=== PATIENT | female | born 1975 | race Hispanic/Latino ===

== ENCOUNTER 2019-08-14 22:11 | Emergency (ER) | payer BC, OTHER ==
[2019-08-14] MEDS ORDERED: ALBUTEROL SULFATE 0.083% 2.5 MG/3 ML INH IH ONE ×2 (23:04→23:55)
[2019-08-14] MEDS ORDERED: PREDNISONE 20 MG TABLET ONE (23:26)
[2019-08-14] MEDS ORDERED: LIDOCAINE HCL 2% VISCOUS 15 ML UDCUP ONE (23:26)
[2019-08-14] MEDS ORDERED: MAG HYDROX/AL HYDROX/SIMETH ES 30 ML SUSP UDCUP ONE (23:26)
[2019-08-15] MEDS ORDERED: DOXYCYCLINE HYCLATE 100 MG TABLET PO ONE (00:06)
== END 2019-08-15 00:38 | disposition home or self-care (01) ==
LOC: EDH 22:11
DX: J20.9 Acute bronchitis, unspecified (principal); J45.909 Unspecified asthma, uncomplicated; M54.2 Cervicalgia; Z90.710 Acquired absence of both cervix and uterus; Z98.890 Other specified postprocedural states; Z79.899 Other long term (current) drug therapy
CPT/HCPCS: 71046; 94640

== ENCOUNTER 2021-09-02 17:52 | Emergency (ER) | payer OTHER ==
[~2021-09-02] VITALS: Ht 154.9 cm; Wt 109.8 kg
[2021-09-02] MEDS ORDERED: ENALAPRILAT DIHYDRATE 1.25MG/ML 1ML VIAL IV STA (18:20)
[2021-09-02 18:26] LABS: BASOPHILS % (AUTO) 0.3 % (0.0-5.0); EOSINOPHILS % (AUTO) 0.9 % (0.0-8.0); LYMPHOCYTES % (AUTO) 11.7 % (21.0-51.0); MEAN CORPUSCULAR HEMOGLOBIN 31.3 pg (27.0-33.0); MEAN CORPUSCULAR HGB CONC 32.9 g/dL (32.0-36.0); MEAN CORPUSCULAR VOLUME 94.9 fL (79-99); MONOCYTES % (AUTO) 5.1 % (3.0-13.0); NEUTROPHILS % (AUTO) 81.4 % (40.0-77.0); PLATELET COUNT (AUTO) 324 K/uL (130-400); RED BLOOD CELL COUNT(AUTO) 4.32 MIL/uL (4.00-5.50); RED CELL DISTRIBUTION WIDTH 12.9 % (11.0-15.5)
[2021-09-02 18:40] LABS: CREATININE 0.8 mg/dL (0.5-1.5); POTASSIUM 5.1 mmol/L (3.5-5.1)
[2021-09-02 18:43] LABS: ALBUMIN 3.4 g/dL (3.5-5.0); BILIRUBIN,TOTAL 0.5 mg/dL (0.2-1.0); TOTAL PROTEIN, SERUM 7.9 g/dL (6.0-8.3)
[2021-09-02 19:58] LABS: APPEARANCE,URINE Clear (CLEAR); BILIRUBIN,URINE Negative (NEGATIVE); COLOR,URINE Yellow (YELLOW); GLUCOSE, URINE (UA) Negative (NEGATIVE); KETONES,URINE Negative (NEGATIVE); LEUKOCYTE ESTERASE ,URINE Negative (NEGATIVE); NITRATE,URINE Negative (NEGATIVE); OCCULT BLOOD,URINE Trace (NEGATIVE); PROTEIN,URINE Negative (NEGATIVE)
[2021-09-02 20:06] LABS: BACTERIA,URINE Few /HPF (None Seen); MUCUS,URINE Few LPF (None Seen); SQUAMOUS EPITHELIAL CELL,UR Few /HPF (0-2)
[2021-09-02] MEDS ORDERED: IBUPROFEN 600 MG TABLET PO STA (20:38)
[2021-09-02] MEDS ORDERED: KETOROLAC 30MG VIAL (30MG/ML) IV STA (20:47)
[2021-09-02 21:30] VITALS: BP 154/65
== END 2021-09-02 21:39 | disposition home or self-care (01) ==
LOC: EDH 17:52
DX: I10 Essential (primary) hypertension (principal); R55 Syncope and collapse; E66.01 Morbid (severe) obesity due to excess calories; Z68.42 Body mass index [BMI] 45.0-49.9, adult; Z79.1 Long term (current) use of non-steroidal anti-inflammatories (NSAID); Z90.710 Acquired absence of both cervix and uterus
CPT/HCPCS: 36415; 70450; 80053; 81001; 84484 ×2; 84703; 85025; 93005 ×3; 96374; 99285; J1885

== ENCOUNTER 2022-01-16 04:36 | Emergency (ER) | payer OTHER ==
[~2022-01-16] VITALS: Ht 154.9 cm; Wt 124.3 kg
[2022-01-16 05:41] LABS: BASOPHILS % (AUTO) 0.5 % (0.0-5.0); EOSINOPHILS % (AUTO) 1.9 % (0.0-8.0); HEMATOCRIT 45.1 % (36-48); LYMPHOCYTES % (AUTO) 11.4 % (21.0-51.0); MEAN CORPUSCULAR HEMOGLOBIN 31.2 pg (27.0-33.0); MEAN CORPUSCULAR HGB CONC 32.8 g/dL (32.0-36.0); MEAN CORPUSCULAR VOLUME 95.1 fL (79-99); MONOCYTES % (AUTO) 4.9 % (3.0-13.0); NEUTROPHILS % (AUTO) 80.7 % (40.0-77.0); PLATELET COUNT (AUTO) 327 K/uL (130-400); RED BLOOD CELL COUNT(AUTO) 4.74 MIL/uL (4.00-5.50); WHITE BLOOD COUNT (AUTO) 12.9 K/uL (4.8-10.8)
[2022-01-16 05:43] LABS: APPEARANCE,URINE Clear (CLEAR); BILIRUBIN,URINE Negative (NEGATIVE); COLOR,URINE Yellow (YELLOW); GLUCOSE, URINE (UA) Negative (NEGATIVE); KETONES,URINE Negative (NEGATIVE); LEUKOCYTE ESTERASE ,URINE Negative (NEGATIVE); NITRATE,URINE Negative (NEGATIVE); OCCULT BLOOD,URINE Trace (NEGATIVE); PROTEIN,URINE Negative (NEGATIVE); UROBILINOGEN,URINE 0.2 mg/dL (0.2-1.0)
[2022-01-16 05:55] LABS: INR 0.95 (0.85-1.15); PROTHROMBIN TIME 10.4 SEC (9.6-11.6)
[2022-01-16 05:56] LABS: PARTIAL THROMBOPLASTIN TIME 27.8 SEC (26.3-35.5)
[2022-01-16 05:59] LABS: ALBUMIN 3.5 g/dL (3.5-5.0); BILIRUBIN,TOTAL 0.4 mg/dL (0.2-1.0); CREATININE 0.6 mg/dL (0.5-1.5); POTASSIUM 3.7 mmol/L (3.5-5.1); TOTAL PROTEIN, SERUM 7.9 g/dL (6.0-8.3)
[2022-01-16 06:03] LABS: BACTERIA,URINE Rare /HPF (None Seen); SQUAMOUS EPITHELIAL CELL,UR 0-2 /HPF (0-2); WBC,URINE None Seen /HPF (0-1)
[2022-01-16 06:30] VITALS: BP 156/74
== END 2022-01-16 07:16 | disposition home or self-care (01) ==
LOC: EDH 04:36
DX: R07.89 Other chest pain (principal); I48.91 Unspecified atrial fibrillation; Z90.710 Acquired absence of both cervix and uterus
CPT/HCPCS: 36415; 71045; 80053; 81001; 84484; 85025; 85610; 85730; 93005

== ENCOUNTER 2022-09-18 10:19 | Emergency (ER) | payer OTHER ==
[~2022-09-18] VITALS: Ht 154.9 cm; Wt 117.9 kg
[2022-09-18] MEDS ORDERED: HYDROMORPHONE 0.5 MG SYG (0.5MG/0.5ML) IVP ONE (10:30)
[2022-09-18] MEDS ORDERED: ASPIRIN 325MG TAB PO ONE (10:30)
[2022-09-18 10:39] LABS: BASOPHILS % (AUTO) 0.3 % (0.0-5.0); EOSINOPHILS % (AUTO) 1.6 % (0.0-8.0); LYMPHOCYTES % (AUTO) 14.8 % (21.0-51.0); MEAN CORPUSCULAR HEMOGLOBIN 28.8 pg (27.0-33.0); MEAN CORPUSCULAR HGB CONC 33.5 g/dL (32.0-36.0); MONOCYTES % (AUTO) 5.1 % (3.0-13.0); NEUTROPHILS % (AUTO) 77.8 % (40.0-77.0); PLATELET COUNT (AUTO) 338 K/uL (130-400); RED CELL DISTRIBUTION WIDTH 12.1 % (11.0-15.5)
[2022-09-18] MEDS ORDERED: IOHEXOL 350 MG/ML 100ML INFUS..BTL IV ONE (10:45)
[2022-09-18 11:06] LABS: CREATININE 0.7 mg/dL (0.5-1.5); POTASSIUM 3.6 mmol/L (3.5-5.1)
[2022-09-18 11:09] LABS: ALBUMIN 3.3 g/dL (3.5-5.0); TOTAL PROTEIN, SERUM 7.8 g/dL (6.0-8.3)
[2022-09-18 11:23] LABS: B-TYPE NATRIURETIC PEPTIDE 37 pg/mL (0-100)
[2022-09-18 12:33] LABS: HCG,QUALITATIVE URINE NEGATIVE (NEGATIVE)
[2022-09-18 12:36] LABS: APPEARANCE,URINE CLEAR (CLEAR); BILIRUBIN,URINE NEGATIVE (NEGATIVE); COLOR,URINE COLORLESS (YELLOW); GLUCOSE, URINE (UA) NEGATIVE (NEGATIVE); KETONES,URINE NEGATIVE (NEGATIVE); LEUKOCYTE ESTERASE ,URINE NEGATIVE Leu/uL (NEGATIVE); NITRATE,URINE NEGATIVE (NEGATIVE); OCCULT BLOOD,URINE NEGATIVE (NEGATIVE); PH,URINE 5.5 (5.0-8.0); PROTEIN,URINE 10 mg/dL (NEGATIVE); UROBILINOGEN,URINE 0.2 mg/dL (0.2-1.0)
[2022-09-18] MEDS ORDERED: CYCL-309 PO (12:40)
[2022-09-18] MEDS ORDERED: GABA300C PO (12:40)
[2022-09-18] MEDS ORDERED: IBUP-1493 PO (12:40)
[2022-09-18 13:03] VITALS: BP 156/85
[2022-09-18 13:06] LABS: MUCUS,URINE RARE LPF (None Seen); SQUAMOUS EPITHELIAL CELL,UR FEW /HPF (0-2)
== END 2022-09-18 13:04 | disposition home or self-care (01) ==
LOC: EDH 10:19
DX: M54.6 Pain in thoracic spine (principal); E11.9 Type 2 diabetes mellitus without complications; I10 Essential (primary) hypertension
CPT/HCPCS: 99285; 72125; 96374; 71045; 84484; 80053; 83880; 85025; 85378; 81001; 81025; 36415; 71260; 72128; 93005; J1170; Q9967

== ENCOUNTER 2023-11-08 17:06 | Emergency (ER) | payer BC ==
[~2023-11-08] VITALS: Ht 154.9 cm; Wt 125.2 kg
[~2023-11-08 17:06] MED LIST: CYCL-309 PO; GABA300C PO; IBUP-1493 PO
[2023-11-08 17:45] LABS: BASOPHILS # (AUTO) 0.05 K/uL (0.00-0.20); BASOPHILS % (AUTO) 0.4 % (0.0-5.0); EOSINOPHILS # (AUTO) 0.06 K/uL (0.00-0.70); EOSINOPHILS % (AUTO) 0.5 % (0.0-8.0); HEMATOCRIT 44.2 % (36-48); IMMATURE GRANULOCYTE ABSOLUTE 0.07 K/uL (0-1); LYMPHOCYTES # (AUTO) 1.2 K/uL (1.0-4.8); LYMPHOCYTES % (AUTO) 9.2 % (21.0-51.0); MEAN CORPUSCULAR HEMOGLOBIN 31.7 pg (27.0-33.0); MEAN CORPUSCULAR HGB CONC 33.9 g/dL (32.0-36.0); MEAN CORPUSCULAR VOLUME 93.4 fL (79-99); MONOCYTES # (AUTO) 0.7 K/uL (0.1-1.0); MONOCYTES % (AUTO) 4.9 % (3.0-13.0); NEUTROPHILS # (AUTO) 11.2 K/uL (1.8-7.7); NEUTROPHILS % (AUTO) 84.5 % (40.0-77.0); PLATELET COUNT (AUTO) 344 K/uL (130-400); RED BLOOD CELL COUNT(AUTO) 4.73 MIL/uL (4.00-5.50); RED CELL DISTRIBUTION WIDTH 12.5 % (11.0-15.5); WHITE BLOOD COUNT (AUTO) 13.3 K/uL (4.8-10.8)
[2023-11-08 17:58] LABS: CREATININE 0.8 mg/dL (0.5-1.5); POTASSIUM 3.9 mmol/L (3.5-5.1)
[2023-11-08 18:07] LABS: ALBUMIN 3.5 g/dL (3.5-5.0); BILIRUBIN,TOTAL 0.5 mg/dL (0.2-1.0); TOTAL PROTEIN, SERUM 8.1 g/dL (6.0-8.3)
[2023-11-08 22:07] LABS: APPEARANCE,URINE CLOUDY (CLEAR); BILIRUBIN,URINE NEGATIVE (NEGATIVE); COLOR,URINE YELLOW (YELLOW); GLUCOSE, URINE (UA) NEGATIVE (NEGATIVE); KETONES,URINE NEGATIVE (NEGATIVE); LEUKOCYTE ESTERASE ,URINE NEGATIVE Leu/uL (NEGATIVE); NITRATE,URINE 2+ (NEGATIVE); OCCULT BLOOD,URINE MODERATE (NEGATIVE); PROTEIN,URINE 10 mg/dL (NEGATIVE); UROBILINOGEN,URINE 3 mg/dL (0.2-1.0)
[2023-11-08 22:09] LABS: ADD UA MICROSCOPIC YES
[2023-11-08 22:11] LABS: BACTERIA,URINE MANY /HPF (None Seen); MUCUS,URINE RARE LPF (None Seen); RBC,URINE 0-1 /HPF (0-1); SQUAMOUS EPITHELIAL CELL,UR FEW /HPF (0-2); YEAST,URINE BUDDING FEW /HPF (None Seen)
[2023-11-08 22:49] VITALS: BP 142/98; PULSE 98; RESP 18; O2SAT 97
== END 2023-11-08 22:50 | disposition home or self-care (01) ==
LOC: EDH 17:06
DX: I16.0 Hypertensive urgency (principal); I67.4 Hypertensive encephalopathy; D72.829 Elevated white blood cell count, unspecified; E11.65 Type 2 diabetes mellitus with hyperglycemia; R60.9 Edema, unspecified; I10 Essential (primary) hypertension; Z90.49 Acquired absence of other specified parts of digestive tract; Z79.1 Long term (current) use of non-steroidal anti-inflammatories (NSAID); Z79.899 Other long term (current) drug therapy
CPT/HCPCS: 36415; 70450; 71045; 80053; 81001; 83880; 84484; 85025; 85378; 87077; 87088; 87186; 93005

== ENCOUNTER 2024-03-15 19:40 | Emergency (ER) | payer BC ==
[~2024-03-15] VITALS: Ht 154.9 cm; Wt 118.8 kg
[2024-03-15 20:23] LABS: APPEARANCE,URINE CLEAR (CLEAR); BILIRUBIN,URINE NEGATIVE (NEGATIVE); COLOR,URINE LIGHT-YELLOW (YELLOW); GLUCOSE, URINE (UA) NEGATIVE (NEGATIVE); KETONES,URINE NEGATIVE (NEGATIVE); LEUKOCYTE ESTERASE ,URINE NEGATIVE Leu/uL (NEGATIVE); NITRATE,URINE NEGATIVE (NEGATIVE); OCCULT BLOOD,URINE MODERATE (NEGATIVE); PH,URINE 5.5 (5.0-8.0); PROTEIN,URINE 10 mg/dL (NEGATIVE); UROBILINOGEN,URINE 0.2 mg/dL (0.2-1.0)
[2024-03-15 20:27] LABS: ADD UA MICROSCOPIC YES
[2024-03-15 20:30] LABS: HCG,QUALITATIVE URINE NEGATIVE (NEGATIVE)
[2024-03-15 20:31] LABS: BACTERIA,URINE RARE /HPF (None Seen); MUCUS,URINE FEW LPF (None Seen); SQUAMOUS EPITHELIAL CELL,UR FEW /HPF (0-2)
[2024-03-15 21:22] LABS: BASOPHILS # (AUTO) 0.08 K/uL (0.00-0.20); BASOPHILS % (AUTO) 0.6 % (0.0-5.0); EOSINOPHILS # (AUTO) 0.29 K/uL (0.00-0.70); EOSINOPHILS % (AUTO) 2.1 % (0.0-8.0); HEMATOCRIT 42.9 % (36-48); IMMATURE GRANULOCYTE ABSOLUTE 0.05 K/uL (0-1); LYMPHOCYTES # (AUTO) 2.2 K/uL (1.0-4.8); MEAN CORPUSCULAR HEMOGLOBIN 31.4 pg (27.0-33.0); MEAN CORPUSCULAR HGB CONC 34.3 g/dL (32.0-36.0); MEAN CORPUSCULAR VOLUME 91.7 fL (79-99); MONOCYTES # (AUTO) 0.7 K/uL (0.1-1.0); MONOCYTES % (AUTO) 4.8 % (3.0-13.0); NEUTROPHILS # (AUTO) 10.3 K/uL (1.8-7.7); NEUTROPHILS % (AUTO) 76.1 % (40.0-77.0); PLATELET COUNT (AUTO) 327 K/uL (130-400); RED BLOOD CELL COUNT(AUTO) 4.68 MIL/uL (4.00-5.50); RED CELL DISTRIBUTION WIDTH 12.5 % (11.0-15.5); WHITE BLOOD COUNT (AUTO) 13.6 K/uL (4.8-10.8)
[2024-03-15 21:35] LABS: ALBUMIN 3.5 g/dL (3.5-5.0); BILIRUBIN,TOTAL 0.4 mg/dL (0.2-1.0); CREATININE 0.7 mg/dL (0.5-1.0); TOTAL PROTEIN, SERUM 7.7 g/dL (6.0-8.3)
[2024-03-15] MEDS ORDERED: NITR.4 SL (22:03)
[2024-03-15] MEDS: POTASSIUM BICARB/CIT AC 25 MEQ TABLET.EFF PO ONE (22:24)
[2024-03-15] MEDS: NITROGLYCERIN 0.4 MG SL TAB SL ONE (22:24)
[2024-03-15] MEDS: POTASSIUM BICARB/CIT AC 25 MEQ TABLET.EFF ONE (22:24)
[2024-03-15] MEDS: NITROGLYCERIN 0.4 MG SL TAB SL PRN (22:25)
[2024-03-15 23:00] VITALS: BP 151/80; PULSE 82; RESP 18; O2SAT 96
== END 2024-03-15 23:13 | disposition home or self-care (01) ==
LOC: EDH 19:40
DX: R07.9 Chest pain, unspecified (principal); I10 Essential (primary) hypertension; E11.9 Type 2 diabetes mellitus without complications; Z79.899 Other long term (current) drug therapy; Z90.49 Acquired absence of other specified parts of digestive tract; Z90.710 Acquired absence of both cervix and uterus; Z98.890 Other specified postprocedural states
CPT/HCPCS: 36415; 71045; 80053; 81001; 81025; 82550; 84484; 85025; 93005

== ENCOUNTER 2024-09-26 17:56 | Emergency (ER) | payer BC ==
[~2024-09-26] VITALS: Ht 154.9 cm; Wt 111.6 kg
[~2024-09-26 17:56] MED LIST changes: +NITR.4 SL
--- NOTE | 2024-09-26 18:49 | HMCIMG ---
FINGER(S) 2+VWS RT REASON: right second finger pain TECHNIQUE: 3 views were obtained. FINDINGS: There is no evidence of fracture or dislocation. There is no joint effusion. The soft tissues appear unremarkable. There is no evidence of a radiopaque foreign body. IMPRESSION: No acute findings.
--- NOTE | 2024-09-26 19:08 | ERN ---
General Chief Complaint: Finger Injury Stated Complaint: RIGHT 2ND FINGER INJURY Time Seen by MD: 17:59 Time Seen by Midlevel: 17:59 Source: patient History of Present Illness Initial Comments Patient is a 48-year-old female significant past medical history presenting with pain to her right 2nd finger. Patient states she accidentally closed the car door on her right 2nd finger and reports significant amount of pain to the area. Denies any other injury or complaints at this time Allergies: Coded Allergies: No Known Allergies (Unverified Allergy, Unknown, 09/02/21) Home Meds Active Scripts Nitroglycerin (Nitrostat/Nitroquick) 0.4 Mg Sltb, 0.4 MG SL AD, #20 TAB.SL If you develop chest pain take 1 tablet sublingual every 5 minutes as needed no more than 3 pills Prov:JANA MURGUIA MD 03/15/24 Ibuprofen (Motrin/Advil) 800 Mg Tab, 800 MG PO TID, #30 TAB Prov:JANA MURGUIA MD 09/18/22 Gabapentin (Neurontin) 300 Mg Capsule, 300 MG PO TID, #60 CAP Prov:JANA MURGUIA MD 09/18/22 Cyclobenzaprine HCl (Cyclobenzaprine HCl) 10 Mg Tablet, 10 MG PO TID, #60 TAB Prov:JANA MURGUIA MD 09/18/22 Past Medical History Past Medical History: Diabetes-Type II, Hypertension, Other Medical History Other: CARDIOMYOPATHY Past Surgical History: Hysterectomy, Surgical History Other: HEART CATH Family History Family History: CAD, HTN Social History Social History: Negative, Lives with family Female( History) History: Not Applicable ROS Dictation CONSTITUTIONAL: Negative except for HPI HEAD/FACE: Negative except for HPI EENT: Negative except for HPI RESPIRATORY: Negative except for HPI GASTROINTESTINAL/ABDOMINAL: Negative except for HPI GENITOURINARY: Negative except for HPI MUSCULOSKELETAL: Negative except for HPI INTEGUMENTARY: Negative except for HPI NEUROLOGICAL/PSYCH: Negative except for HPI HEMATOLOGIC/LYMPHATIC: Negative except for HPI All Systems Negative, Except as noted above. 13 point review of systems assessed and all negative except for above. Physical Exam Physical Exam Dictation Vital Signs reviewed General Appearance: Alert, oriented x 3, no acute distress, well developed, nourished. Head and Face: non-traumatic. Eyes: PERRL, pink conjunctivas, eyelid no trauma, anterior chamber with arcus senilis. Ears: Pinnas intact and no signs of trauma or erythema ear canals clear and no discharge TM no erythema Nose: No discharge, no bleeding. Oropharynx: Mouth normal, tongue pink, pharynx clear,no erythema, tonsils no exudates, no abscesses noted, mucous membrane moist Neck: Supple, non-tender, no thyromegaly, no masses, no JVD, no bruits Breast:Deferred Chest:No tenderness, no crepitus, no paradoxical movement, no retractions Lungs:Clear, well-ventilated, symmetric, no rales, no wheezing, no rhonchi, no stridor, good breath sounds bilaterally Heart: Regular rate, regular rhythm, no murmur, no gallops Vascular: no peripheral edema, Abdomen: Soft, positive bowel sounds, nondistended, no guarding, nontender, no rebound, no masses no hepatomegaly, no splenomegaly, no Joseph's sign, no hernias. Rectal: Deferred Genital: Deferred Neurological: Normal speech, motor function intact, sensory function intact Musculoskeletal: Neck nontender, full range of motion, back nontender, full range of motion, Extremities: nontender, full range of motion Skin: Color pink, dry, no turgor, no rash, no lacerations, no abrasions, no contusions. Lymphatic: Deferred MDM MDM: Patient is a 48-year-old female significant past medical history presenting with pain to her right 2nd finger. Patient states she accidentally closed the car door on her right 2nd finger and reports significant amount of pain to the area. Denies any other injury or complaints at this time on physical examination patient has tenderness to the right 2nd digit. There is an overlying superficial laceration to the distal aspect of the 2nd digit. An x- ray was ordered which does not reveal any acute fracture. The laceration was successfully repaired with Dermabond. Patient will be discharged home with supportive management. The gauze was placed over the laceration and a finger splint was placed with the Dermabond can hold in place at least for the next 24- 48 hours. Differential diagnosis: Fracture, contusion, abrasion, laceration There are no social concerns with this patient. Prescription drug management Prescriptions will include: None Medical management and examination interpretation discussions were had by me with other qualified healthcare professionals as indicated for the patient's care. ED Course Orders Procedure Category Date Status Time Finger(S) 2+Vws Rt RAD 09/26/24 Resulted 18:13 Dermabond (Dermabond) PHA 09/26/24 Complete 18:52 Current Medications Medications (Trade) Dose Ordered Sig/Lui Route PRN Reason Start Time Stop Time Status Last Admin Dose Admin Octyl Cyanoacrylate (Dermabond) 1 each STK-MED ONCE TP 09/26/24 18:52 09/26/24 18:53 DC 09/26/24 19:40 Vital Signs Date Time Temp Pulse Resp B/P (MAP) Pulse Ox O2 Delivery O2 Flow Rate FiO2 09/26/24 21:41 98.2 90 16 135/80 98 Room Air* 0 09/26/24 19:43 98.2 80 16 132/77 99 Room Air* 0 09/26/24 17:57 97.9 89 16 189/105 98 Room Air 0 [place] [address] [id number] IMAGING REPORT Signed PATIENT: SAIMA MILLER MR#: [id number] : 1975 SEX: F AGE: 48 LOCATION: [facility] ORDER 13 STATUS: REG ER REPORT#: [id number] SERVICE 12 REASON: right second finger pain ORDERING PHYSICIAN: YURI MERLOS PROCEDURE: FINGER RT - FINGER(S) 2+VWS RT FINGER(S) 2+VWS RT REASON: right second finger pain TECHNIQUE: 3 views were obtained. FINDINGS: There is no evidence of fracture or dislocation. There is no joint effusion. The soft tissues appear unremarkable. There is no evidence of a radiopaque foreign body. IMPRESSION: No acute findings. DICTATED BY: KENIA CONDON MD DATE: 09/26/241845 ELECTRONICALLY SIGNED BY: KENIA CONDON MD DATE: 09/26/241848 DX & DISP Disposition: Discharge Departure Impression: Primary Impression: Finger laceration Additional Impression: Finger contusion Condition: Stable Additional Instructions: Your x-ray of the right finger does not show any acute fracture. You may take Tylenol and Motrin for pain. Your laceration appears to be superficial and was repaired with Dermabond. Please follow up with your PCP in 2-3 days for repeat evaluation Referrals: ELIZABETH BOO MD (PCP) Time of Disposition: 19:17 I have reviewed the case, and I agree with, Diagnosis and Plan I performed a substantive portion of the visit. I have reviewed and personally made and approve the management plan that is documented in the notes by myself with RIZWAN/resident. I acknowledged full responsibility for the patient's management plan. YURI MERLOS Sep 26, 2024 19:08 GARRET YAN DO Sep 28, 2024 21:56
[2024-09-26] MEDS: OCTYL 2-CYANOACRYLATE 1 EACH TP ONE (19:40)
[2024-09-26 21:41] VITALS: BP 135/80; PULSE 90; RESP 16; TEMP 98.2; O2SAT 98
== END 2024-09-26 21:51 | disposition home or self-care (01) ==
LOC: EDH 17:56
DX: S61.210A Laceration without foreign body of right index finger without damage to nail, initial encounter (principal); E11.9 Type 2 diabetes mellitus without complications; I10 Essential (primary) hypertension; Z79.1 Long term (current) use of non-steroidal anti-inflammatories (NSAID); Z79.899 Other long term (current) drug therapy; Z90.710 Acquired absence of both cervix and uterus; W23.0XXA Caught, crushed, jammed, or pinched between moving objects, initial encounter; Y93.89 Activity, other specified; Y92.89 Other specified places as the place of occurrence of the external cause; Y99.8 Other external cause status
CPT/HCPCS: 12001; 73140

== ENCOUNTER 2024-11-02 23:07 | Emergency (ER) | payer BC ==
[~2024-11-02] VITALS: Ht 154.9 cm; Wt 113.4 kg
[2024-11-02 23:40] LABS: BASOPHILS # (AUTO) 0.06 K/uL (0.00-0.20); BASOPHILS % (AUTO) 0.4 % (0.0-5.0); EOSINOPHILS # (AUTO) 0.21 K/uL (0.00-0.70); EOSINOPHILS % (AUTO) 1.4 % (0.0-8.0); HEMATOCRIT 48.7 % (36-48); IMMATURE GRANULOCYTE ABSOLUTE 0.07 K/uL (0-1); LYMPHOCYTES # (AUTO) 2.5 K/uL (1.0-4.8); MEAN CORPUSCULAR HEMOGLOBIN 30.9 pg (27.0-33.0); MEAN CORPUSCULAR HGB CONC 33.7 g/dL (32.0-36.0); MEAN CORPUSCULAR VOLUME 91.7 fL (79-99); MONOCYTES # (AUTO) 0.6 K/uL (0.1-1.0); MONOCYTES % (AUTO) 4.1 % (3.0-13.0); NEUTROPHILS # (AUTO) 11.3 K/uL (1.8-7.7); NEUTROPHILS % (AUTO) 76.6 % (40.0-77.0); PLATELET COUNT (AUTO) 358 K/uL (130-400); RED BLOOD CELL COUNT(AUTO) 5.31 MIL/uL (4.00-5.50); RED CELL DISTRIBUTION WIDTH 12.6 % (11.0-15.5); WHITE BLOOD COUNT (AUTO) 14.7 K/uL (4.8-10.8)
[2024-11-02 23:46] LABS: CREATININE 0.7 mg/dL (0.5-1.0); POTASSIUM 3.3 mmol/L (3.5-5.1)
[2024-11-02] MEDS: ondanSETRON 4MG INJ IVP ONE (23:46)
[2024-11-02] MEDS: NITROGLYCERIN 0.4 MG SL TAB SL PRN (23:46)
[2024-11-02] MEDS: morPHINE 4 MG SYG IVP ONE (23:46)
[2024-11-02] MEDS: furoSEMIDE 40MG VIAL IV ONE (23:46)
[2024-11-03 00:04] LABS: B-TYPE NATRIURETIC PEPTIDE 33 pg/mL (0-100)
[2024-11-03 00:17] LABS: ADD UA MICROSCOPIC NO; APPEARANCE,URINE CLEAR (CLEAR); BILIRUBIN,URINE NEGATIVE (NEGATIVE); COLOR,URINE COLORLESS (YELLOW); GLUCOSE, URINE (UA) NEGATIVE (NEGATIVE); KETONES,URINE NEGATIVE (NEGATIVE); LEUKOCYTE ESTERASE ,URINE NEGATIVE Leu/uL (NEGATIVE); NITRATE,URINE NEGATIVE (NEGATIVE); OCCULT BLOOD,URINE NEGATIVE (NEGATIVE); PH,URINE 6.5 (5.0-8.0); PROTEIN,URINE NEGATIVE (NEGATIVE); UROBILINOGEN,URINE 0.2 mg/dL (0.2-1.0)
[2024-11-03 00:19] LABS: HCG,QUALITATIVE URINE NEGATIVE (NEGATIVE)
--- NOTE | 2024-11-03 00:37 | ERN ---
General Chief Complaint: Chest Pain Stated Complaint: LEFT UPPER CHEST PRESSURE, NAUSEA,LIGHTHEADED Time Seen by MD: 23:14 History of Present Illness Initial Comments Mrs Luciano is a 48-year-old female significant past medical history of morbid obesity, essential hypertension and hyperlipidemia presents today with a chief complaint of chest pressure. Patient reports that she has a history of elevated blood pressure. Patient comes in with a blood pressure of 207/90 eye. Patient states that she takes Coreg and Entresto but still has issues with her blood pressure Allergies: Coded Allergies: No Known Allergies (Unverified Allergy, Unknown, 09/02/21) Home Meds Active Scripts Nitroglycerin (Nitrostat/Nitroquick) 0.4 Mg Sltb, 0.4 MG SL AD, #20 TAB.SL If you develop chest pain take 1 tablet sublingual every 5 minutes as needed no more than 3 pills Prov:JANA MURGUIA MD 03/15/24 Ibuprofen (Motrin/Advil) 800 Mg Tab, 800 MG PO TID, #30 TAB Prov:JANA MURGUIA MD 09/18/22 Gabapentin (Neurontin) 300 Mg Capsule, 300 MG PO TID, #60 CAP Prov:JANA MURGUIA MD 09/18/22 Cyclobenzaprine HCl (Cyclobenzaprine HCl) 10 Mg Tablet, 10 MG PO TID, #60 TAB Prov:JANA MURGUIA MD 09/18/22 Past Medical History Past Medical History: Diabetes-Type II, Hypertension, Other Medical History Other: CARDIOMYOPATHY Past Surgical History: Hysterectomy, Surgical History Other: HEART CATH Family History Family History: CAD, HTN Social History Social History: Negative, Lives with family Female( History) History: Not Applicable ROS Dictation Constitutional: Negative for fever,chills, and weight loss Eyes: Negative for injury, pain,redness, and discharge ENT: Negative for injury,pain or swelling Cardiovascular: Positive for chest pressure Respiratory: Negative for shortness of breath, cough, and wheezing, Abdomen/GI: Negative for abdominal pain, nausea, vomiting, diarrhea, and constipation Back: Negative for injury and pain : Negative for injury, bleeding and discharge MS/Extremity: Negative for injury and deformity Skin: Negative for rash, and discoloration Neuro: Negative for headache, weakness, numbness, tingling, and seizure Psych: Negative for suicide ideation, homicidal ideation, and hallucinations Physical Exam Physical Exam Dictation General: awake, alert, NAD Head/Face: Normocephalic, atraumatic Eyes: PERRL, EOMI, vision at baseline ENT: oral cavity clear Neck: Trachea midline, supple, no nuchal rigidity Cardiovascular: RRR, normal S1/S2 Respiratory: Diminished breath sounds bilaterally Abdomen: Soft, non-tender, non-distended, normal bowel sounds, no guarding or rebound. Skin: Warm, dry, MS/Extremity: Pulses equal Neuro: COAx4, GCS 15, strength 5/5, CN 2-12 intact Psych: Normal behavior, mood, and affect normal Results Laboratory and Microbiology Lab and Micro Result Laboratory Tests Test 11/02/24 23:29 11/02/24 23:57 11/03/24 00:09 White Blood Count 14.7 K/uL (4.8-10.8) H Red Blood Count 5.31 MIL/uL (4.00-5.50) Hemoglobin 16.4 g/dL (12.0-16.0) H Hematocrit 48.7 % (36-48) H Mean Corpuscular Volume 91.7 fL (79-99) Mean Corpuscular Hemoglobin 30.9 pg (27.0-33.0) Mean Corpuscular Hemoglobin Concent 33.7 g/dL (32.0-36.0) Red Cell Distribution Width 12.6 % (11.0-15.5) Platelet Count 358 K/uL (130-400) Mean Platelet Volume 9.5 fL (7.5-10.5) Immature Granulocyte % (Auto) 0.5 % (0-1) Neutrophils (%) (Auto) 76.6 % (40.0-77.0) Lymphocytes (%) (Auto) 17.0 % (21.0-51.0) L Monocytes (%) (Auto) 4.1 % (3.0-13.0) Eosinophils (%) (Auto) 1.4 % (0.0-8.0) Basophils (%) (Auto) 0.4 % (0.0-5.0) Neutrophils # (Auto) 11.3 K/uL (1.8-7.7) H Lymphocytes # (Auto) 2.5 K/uL (1.0-4.8) Monocytes # (Auto) 0.6 K/uL (0.1-1.0) Eosinophils # (Auto) 0.21 K/uL (0.00-0.70) Basophils # (Auto) 0.06 K/uL (0.00-0.20) Absolute Immature Granulocyte (auto 0.07 K/uL (0-1) Nucleated Red Blood Cells 0.0 % (0.0-0.19) Sodium Level 144 mmol/L (136-145) Potassium Level 3.3 mmol/L (3.5-5.1) L Chloride Level 106 mmol/L (101-111) Carbon Dioxide Level 31 mmol/L (21-32) Blood Urea Nitrogen 10 mg/dL (7-18) Creatinine 0.7 mg/dL (0.5-1.0) Glomerular Filtration Rate Calc 108 mL/min (>90) Random Glucose 91 mg/dL (70-105) Total Calcium 9.4 mg/dL (8.5-10.1) Total Creatine Kinase 118 U/L (21-232) B-Type Natriuretic Peptide 33 pg/mL (0-100) Troponin I < 0.05 ng/mL (0.00-0.05) Urine Color COLORLESS (YELLOW) Urine Appearance CLEAR (CLEAR) Urine pH 6.5 (5.0-8.0) Urine Specific [place] 1.005 (1.001-1.031) Urine Protein NEGATIVE mg/dL (NEGATIVE) Urine Glucose (UA) NEGATIVE mg/dL (NEGATIVE) Urine Ketones NEGATIVE mg/dL (NEGATIVE) Urine Occult Blood NEGATIVE (NEGATIVE) Urine Nitrate NEGATIVE (NEGATIVE) Urine Bilirubin NEGATIVE mg/dL (NEGATIVE) Urine Urobilinogen 0.2 mg/dL (0.2-1.0) Urine Leukocyte Esterase NEGATIVE [place]/uL Urine HCG, Qualitative NEGATIVE (NEGATIVE) MDM Patient was had improvement of her chest pain with antihypertensive. Patient currently is asymptomatic and blood pressure is 124/99. Advised the patient to follow up with the primary care physician/nursing home aide to augment her blood pressure regimen. Patient was time is willing to be discharged MDM: Differential diagnosis: Hypertensive urgency Rationale: Tests considered and ordered secondary to shared decision making include: Previous outside records reviewed: Old ER visits. Risk of complication and/or morbidity or mortality of patient management: None Medications-Per medication reconciliation Need for hospitalization: Patient does not meet criteria for hospitalization. Need for emergency major/minor surgery: No There are no social concerns with this patient. Prescription drug management Prescriptions will include symptomatic care Patient's prior external medical records from other ER visits were reviewed by me as indicated. Prior testing and results from previous visits were reviewed. Prior tests were taken into account with medical decision making and resource utilization, independent historian/historians were used to obtain complete medical history. I independently interpreted the test that were performed, results were reviewed by me and considered findings on radiology if ordered. Medical management and examination interpretation discussions were had by me with other qualified healthcare professionals as indicated for the patient's care. ED Course Orders Procedure Category Date Status Time Vital Signs Per CPOE 11/02/24 Transmitted Routine 23:27 B-Type Natriuretic LAB 11/02/24 Complete Peptide 23:27 Chest 1vw RAD 11/02/24 Taken 23:27 12 Lead Ekg Tracing- EKG 11/02/24 Logged Technical 23:27 Oxygen By Nc/Pulse Ox CPOE 11/02/24 Transmitted 23:27 Maintain Iv CPOE 11/02/24 Transmitted 23:27 Iv Insertion CPOE 11/02/24 Transmitted 23:27 Cardiac Monitoring CPOE 11/02/24 Transmitted 23:27 Pulse Oximetry With CPOE 11/02/24 Transmitted Vs And Prn 23:27 Cbc With Differential LAB 11/02/24 Complete 23:27 Activity: Br W/Brp CPOE 11/02/24 Transmitted With Assist 23:27 Creatine Kinase, Total LAB 11/02/24 Complete 23:27 Troponin Poc Order LAB 11/02/24 Complete Only 23:27 Bedside Troponin-I LAB.ER 11/02/24 In Process (Poc) 23:27 Basic Metabolic Panel LAB 11/02/24 Complete 23:27 Nitroglycerin 0.4mg PHA 11/02/24 In Process Sl Tab (Nitrostat) 23:30 Morphine 4mg Syg PHA 11/02/24 Complete (Morphine 4mg Syg) 23:30 Ondansetron 4mg Inj PHA 11/02/24 Complete (Zofran 4mg Inj) 23:30 ,Urine Test LAB 11/02/24 Complete 23:26 Urinalysis Profile LAB 11/02/24 Complete 23:26 Hydralazine 20mg Inj PHA 11/03/24 Complete (Apresoline 20mg In 00:00 Furosemide 40mg Vial PHA 11/03/24 Complete (Lasix 40mg Vial) 00:00 Potassium Chl 10% PHA 11/03/24 In Process Elixir 20meq (Kcl 10% 01:00 Current Medications Medications (Trade) Dose Ordered Sig/Lui Route PRN Reason Start Time Stop Time Status Last Admin Dose Admin Furosemide (LASix 40MG VIAL) 40 mg ONCE ONCE IV 11/03/24 00:00 11/03/24 00:01 DC 11/02/24 23:46 Hydralazine HCl (APRESOLine 20MG INJ) 20 mg ONCE ONCE IV 11/03/24 00:00 11/03/24 00:01 DC Morphine Sulfate (morPHINE 4MG SYG) 4 mg ONCE ONCE IVP 11/02/24 23:30 11/02/24 23:31 DC 11/02/24 23:46 Nitroglycerin (Nitrostat) 0.4 mg Q5M PRN SL CHEST PAIN 11/02/24 23:30 11/02/24 23:46 Ondansetron HCl (zoFRAN 4MG INJ) 4 mg ONCE ONCE IVP 11/02/24 23:30 11/02/24 23:31 DC 11/02/24 23:46 Potassium Chloride (KCl 10% Elixir 20meq/15ml) 60 meq ONCE ONCE PO 11/03/24 01:00 11/03/24 01:01 Vital Signs Date Time Temp Pulse Resp B/P (MAP) Pulse Ox O2 Delivery O2 Flow Rate FiO2 11/03/24 00:12 77 18 124/88 95 Room Air* 0 21 11/02/24 23:55 98.2 72 16 146/87 95 Room Air* 0 21 11/02/24 23:26 84 12 207/99 100 Room Air* 0 21 11/02/24 23:10 98.1 89 16 203/110 100 Room Air 0 DX & DISP Disposition: Discharge Departure Impression: Primary Impression: Uncontrolled hypertension Condition: Stable Additional Instructions: Please follow up with your primary care physician/nursing home aide for continuance of care. It appears that you may need to increase your blood pressure regimen to help can chief your blood pressure. Please do not eat more than 2 g of sodium a day. If you have a return of chest pressure chest pain please come back to emergency department Referrals: ELIZABETH BOO MD (PCP) SRAAH MILLER MD Nov 03, 2024 00:37
[2024-11-03] MEDS: hydrALAZine 20MG/ML VIAL IV ONE (00:59)
[2024-11-03] MEDS: PoTASSium chl 10% ELIXIR 20MEQ 20 MEQ/15 ML UDCUP PO ONE (01:04)
[2024-11-03 01:25] VITALS: BP 132/81; PULSE 72; RESP 16; TEMP 98.4; O2SAT 100
--- NOTE | 2024-11-03 08:33 | HMCIMG ---
PORTABLE CHEST RADIOGRAPH INDICATION: CHEST PAIN COMPARISON: 03/15/2024 FINDINGS: Heart size is normal. The pulmonary vascularity and laith appear normal. No abnormal pulmonary parenchymal opacity or consolidation identified. No significant pleural effusion noted. No pneumothorax detected. IMPRESSION: No radiographic evidence for any acute cardiopulmonary process.
--- NOTE | 2024-11-04 17:13 | EKG ---
[facility] Test Date: 2024-11-02 Test Time: 23:14:54 Pat Name: SAIMA MILLER Department: ED Room: Gender: F Technician Automatic: [id number] : 1975 Requested By: SARAH MILLER Order Number: [id number] Reading MD: Manolo Gonzalez Measurements Intervals [place] Rate: 77 P: 41 [place]: 147 QRS: 0 QRSD: 102 T: 20 QT: 409 QTc: 465 Interpretive Statements Sinus rhythm Ventricular premature complex LVH with secondary repolarization abnormality Compared to ECG 03/15/2024 19:56:31 Ventricular premature complex(es) now present Electronically Signed On 11-04-2024 17:39:32 OPERATIONS ADMINISTRATIVE ASSISTANT by Manolo Gonzalez Please click the below link to view image of tracing.
== END 2024-11-03 01:26 | disposition home or self-care (01) ==
LOC: EDH 23:07
DX: I10 Essential (primary) hypertension (principal); E11.9 Type 2 diabetes mellitus without complications; E66.01 Morbid (severe) obesity due to excess calories; E78.5 Hyperlipidemia, unspecified; Z79.1 Long term (current) use of non-steroidal anti-inflammatories (NSAID); Z79.899 Other long term (current) drug therapy; Z90.710 Acquired absence of both cervix and uterus; Z98.890 Other specified postprocedural states
CPT/HCPCS: 99284; 96374; 96375; 71045; 82550; 84484; 80048; 83880; 85025; 81003; 81025; 36415; 93005; J0360; J2405; J2270; J1940